=== PATIENT | male | born 1990 | race Caucasian/White ===

== ENCOUNTER 2018-02-21 22:16 | Emergency (ER) | payer OTHER, SELFPAY ==
[2018-02-21 22:18] VITALS: BP 140/84; PULSE 88; RESP 17; TEMP 37.1; O2SAT 95; BMI 29.2
--- NOTE | 2018-02-21 22:34 | ED.VISSUMM ---
- ER Visit Summary Date of Service: 02/21/18 Chief Complaint: Cough History of Present Illness: The patient is a 28 M presents with a mostly nonproductive cough for the past 2 days, worse when he lies down, better when he is not lying down. He has asthma but states he really has not had any wheezing, except for once when he was exercising, used his albuterol inhaler, which helped. He has had nasal congestion, mild bifrontal headache, and chest soreness only when he coughs. Temperature up to 99.4 yesterday. Both of his ears are achy in his throat is a little sore. Sick contacts at work with similar symptoms. No dyspnea. Physical Examination: Vital signs are normal with pulse ox 95 on room air. He is well-appearing in no acute distress. He has an occasional bronchitic nonproductive cough. His lungs are clear to auscultation throughout, he has audible nasal congestion but no swollen turbinates or purulent nasal discharge. Posterior oropharynx is clear and nonerythematous, without asymmetry, or exudates. Ears are normal bilaterally. No cervical lymphadenopathy. Heart is regular no murmur no tachycardia. No rashes. Test Results: n/a Emergency Department Course and Treatment: Consistent with what is likely viral bronchitis. As I discussed with the patient, antibiotics not indicated at this time. Gave him naproxen for his headache in addition to a dose of Robitussin-AC and a prescription for Robitussin-AC in addition to a wait and see prescription for prednisone, the use of which we discussed. He is comfortable with this plan and following up with his doctor if he does not have any improvement after like 2 weeks. Treatment Plan: As above, in addition to his albuterol inhaler prn bronchospasm Disposition: Discharge home Impression: Acute bronchitis with bronchospasm This note was generated with [employer] dictation software. It may contain incorrect words, spelling, and punctuation that were not noted in review of the chart prior to signing ED Disposition - Plan for ED Patient: Disposition: Home or Assisted Living Chief Complaint: Cough Instructions: Acute Bronchitis Prescriptions: Guaifenesin/Codeine [Robitussin AC] 5 - 10 ml PO Q6H PRN PRN 4 Days #4 oz PRN Reason: Cough Prednisone [Deltasone] 40 mg PO DAILY #10 tab Referrals: Gus Maddox MD [Primary Care Provider] - 1 Week if not improving Additional Instructions: If your wheezing and asthma become more of an issue, fill and take prednisone until completely gone. Usual your inhaler for coughing fits as needed.
[2018-02-21] MEDS: guaiFENesin 10 ML UDC (200MG/10ML) PO (22:39)
[2018-02-21] MEDS: Naproxen 500 MG Tablet PO (22:39)
--- NOTE | 2018-02-21 22:39 | ED.DCSUM_ITS ---
- ER Visit Summary Date of Service: 02/21/18 Chief Complaint: Cough History of Present Illness: The patient is a 28 M presents with a mostly nonproductive cough for the past 2 days, worse when he lies down, better when he is not lying down. He has asthma but states he really has not had any wheezing, except for once when he was exercising, used his albuterol inhaler, which helped. He has had nasal congestion, mild bifrontal headache, and chest soreness only when he coughs. Temperature up to 99.4 yesterday. Both of his ears are achy in his throat is a little sore. Sick contacts at work with similar symptoms. No dyspnea. Physical Examination: Vital signs are normal with pulse ox 95 on room air. He is well-appearing in no acute distress. He has an occasional bronchitic nonproductive cough. His lungs are clear to auscultation throughout, he has audible nasal congestion but no swollen turbinates or purulent nasal discharge. Posterior oropharynx is clear and nonerythematous, without asymmetry, or exudates. Ears are normal bilaterally. No cervical lymphadenopathy. Heart is regular no murmur no tachycardia. No rashes. Test Results: n/a Emergency Department Course and Treatment: Consistent with what is likely viral bronchitis. As I discussed with the patient, antibiotics not indicated at this time. Gave him naproxen for his headache in addition to a dose of Robitussin- AC and a prescription for Robitussin-AC in addition to a wait and see prescription for prednisone, the use of which we discussed. He is comfortable with this plan and following up with his doctor if he does not have any improvement after like 2 weeks. Treatment Plan: As above, in addition to his albuterol inhaler prn bronchospasm Disposition: Discharge home Impression: Acute bronchitis with bronchospasm This note was generated with [employer] dictation software. It may contain incorrect words, spelling, and punctuation that were not noted in review of the chart prior to signing ED Disposition - Plan for ED Patient: Disposition: Home or Assisted Living Chief Complaint: Cough Instructions: Acute Bronchitis Prescriptions: Guaifenesin/Codeine [Robitussin AC] 5 - 10 ml PO Q6H PRN PRN 4 Days #4 oz PRN Reason: Cough Prednisone [Deltasone] 40 mg PO DAILY #10 tab Referrals: Gus Maddox MD [Primary Care Provider] - 1 Week if not improving Additional Instructions: If your wheezing and asthma become more of an issue, fill and take prednisone until completely gone. Usual your inhaler for coughing fits as needed.
[2018-02-21 22:51] VITALS: BP 140/84; PULSE 88; RESP 17; O2SAT 95
== END 2018-02-21 22:52 | disposition home or self-care (01) ==
PROVIDERS: Emergency Provider Emergency Medicine; Family Provider Family Medicine; PCP Family Medicine
DX: J20.9 Acute bronchitis, unspecified (principal)
CPT/HCPCS: 99283

== ENCOUNTER → 2023-12-18 | Outpatient (CLI) | payer OTHER, SELFPAY ==
--- NOTE | 2023-12-18 08:12 | VDLE_ITS ---
Reason For Study: Left leg pain RIGHT LEFT CFV is compressible, spontaneous, phasic, GSV is normal. competent and demonstrates normal CFV is compressible, spontaneous, phasic, augmentation. competent, and demonstrates normal Procedure augmentation. This is a venous duplex using B-mode, color FV is compressible, spontaneous, phasic, flow and spectral Doppler. competent and demonstrates normal Exam performed in department. augmentation. A preliminary report was called and/or faxed POP V is compressible, spontaneous, phasic, to Dr. Buenrostro. competent and demonstrates normal augmentation. T/P Trunk is compressible. PTV is compressible. LT PerV is compressible. VL/Venous Duplex US, Unilateral Interpretation Summary Deep veins of the left lower extremity are patent and compressible segmentally. There is no evidence of left lower extremity deep vein thrombosis. Valvular competence appears intac t within the proximal deep venous system on the left . The left great saphenous vein appears patent a nd compressible segmentally. The right common femoral vein is patent and compressible . Ordering Physician: Dominguez Buenrostro Referring Physician: Gus Maddox Performed By: Paula Pittman RV[place]
== END | disposition home or self-care (01) ==
PROVIDERS: PCP Family Medicine; Referring Provider Orthopaedic Surgery; Visit Provider Orthopaedic Surgery
DX: M79.662 Pain in left lower leg (principal)
CPT/HCPCS: 93971